=== PATIENT | female | born 1985 | race Native Hawaiian/Other Pacific Islander ===

== ENCOUNTER → 2016-06-12 | Outpatient (CLI) | payer OTHER ==
[~2016-06-12] MED LIST: DOXY10TA PO; IBUP-232 PO; MACR100C PO; PRENCAP6 PO
== END ==
LOC: HPND 10:33
PROVIDERS: ATTEND Obstetrics & Gynecology
DX: O36.5930 Maternal care for other known or suspected poor fetal growth, third trimester, not applicable or unspecified (principal); Z3A.35 35 weeks gestation of pregnancy
CPT/HCPCS: 76816

== ENCOUNTER → 2016-07-15 | Outpatient (CLI) | payer OTHER | LOC: HPND 10:41 | PROVIDERS: ATTEND Obstetrics & Gynecology | DX: O36.5930 Maternal care for other known or suspected poor fetal growth, third trimester, not applicable or unspecified (principal) | CPT/HCPCS: 76816 ==

== ENCOUNTER 2016-07-20 18:33 | Emergency (ER) | payer OTHER ==
[~2016-07-20 18:33] MED LIST changes: -IBUP-232 PO
--- NOTE | 2016-07-20 19:27 | PD ---
HPI Chief Complaint Vaginal spotting Date Seen: Jul 20, 2016 Time Seen: 19:23 Travel History International Travel<30 Days: No Contact w/Intl Traveler<30Days: No Known Affected Area: No History of Present Illness HPI 30-year-old female at 40 weeks and 1 day absent today with vaginal spotting earlier this evening. Patient was checked in the office today around 11 AM and she was 1 cm. She had a small amount of spotting about 5 PM or so. Denies abdominal pain, denies rupture membranes, she is having normal movement. She has another appointment in the office tomorrow to set up an induction for later this week Para: 0 : 1 History Past Medical History Medical History: Denies Significant Hx Past Surgical History Surgical History: No Previous Surgery Family History Family History: Negative Social History Alcohol Use: No Tobacco Use: No Substance Abuse: No Allergies-Medications (Allergen,Severity, Reaction): Coded Allergies: No Known Allergies (Unverified , 11/27/15) Home Meds Active Scripts Doxylamine-Pyridoxine (Diclegis)1 Tab Tab2 Tab PO HS #20 Prov:Carmela Buitrago MD 11/27/15 Nitrofurantoin Monohyd Macro (Macrobid)100 Mg [id number] Mg PO BID 7 Days Prov:Carmela Buitrago MD 11/27/15 Reported Medications Mv & Min W/Fe Fumarat ( 1) Cap1 Cap PO DAILY 11/27/15 Review of Systems Except as stated in HPI: all other systems reviewed are Neg Physical Exam Narrative GENERAL: Well-nourished, well-developed patient. SKIN: Warm and dry. HEAD: Normocephalic and atraumatic. EYES: No scleral icterus. No injection or drainage. ENT: No nasal drainage noted. Mucous membranes pink. Airway patent. NECK: Supple, trachea midline. No JVD. CARDIOVASCULAR: Regular rate and rhythm without murmurs, gallops, or rubs. RESPIRATORY: Breath sounds equal bilaterally. No accessory muscle use. BREASTS: Bilateral exam showed no masses , no retractions, no nipple discharge. ABDOMEN/GI: Abdomen soft, non-tender, bowel sounds present, no rebound, no guarding Gravid to [-] weeks size Fundal Height: [-37] GENITOURINARY: External Genitalia: intact and normal in appearance BUS glands: [-Normal] Cervix: [-Posterior] Dilatation: [-1] Effacement: [50-] Station: [--2] Presentation: [-Vertex] Membranes: Intact Uterine Contractions: Irritability FHT's: Category: [1-] Baseline: 140 Reactive: Moderate Variability: Moderate Decels: Absent EXTREMITIES: No cyanosis or edema. BACK: Nontender without obvious deformity. No CVA tenderness. NEUROLOGICAL: Awake and alert. Motor and sensory grossly within normal limits. Five out of 5 muscle strength in all muscle groups. Normal speech. Data Data Vital Signs Reviewed: Yes MDM Plan 30-year-old female who is at 40 weeks gestation with a small amount of vaginal spotting most likely due to cervical exam in the office today Category 1 heart rate tracing no cervical change since examination earlier today Follow-up as scheduled tomorrow in the office Diagnosis Diagnosis: Primary Impression: 40 weeks gestation of Additional Impression: Vaginal bleeding during , antepartum Disposition: 01 DISCHARGE HOME Ni Pemberton MD Jul 20, 2016 19:27
== END 2016-07-20 19:40 | disposition home or self-care (01) ==
LOC: HOBED 18:33
DX: O26.853 Spotting complicating pregnancy, third trimester (principal); Z3A.40 40 weeks gestation of pregnancy
CPT/HCPCS: 59025

== ENCOUNTER 2016-07-21 18:23 | Inpatient (IN) | payer OTHER ==
[2016-07-21] VITALS (48 sets, daily range): BP systolic 96–144; BP diastolic 45–95; PULSE 76–117; RESP 18–20; TEMP 97.5–98.4
--- NOTE | 2016-07-21 18:36 | PD ---
HPI Chief Complaint Contractions Date Seen: Jul 21, 2016 Travel History International Travel<30 Days: No Contact w/Intl Traveler<30Days: No History of Present Illness HPI Patient is a 30 year old at 40-5/7 weeks gestation with RANDY 07/16/16 who presents today for contractions. She has been having intermittent contractions for the past day, however today around 2 PM her contractions became more regular , occurring every 5 minutes. Since then, they have been becoming more painful and increasing in frequency. She is having some vaginal bleeding but denies any vaginal discharge or gush or leaking of fluid. Positive movement. care with Dr. Ho. History Past Medical History Medical History: Denies Significant Hx Obstetric History Obstetric History Past Surgical History Surgical History: No Previous Surgery Family History Family History: Negative Social History Alcohol Use: No Tobacco Use: No Substance Abuse: No Allergies-Medications (Allergen,Severity, Reaction): Coded Allergies: No Known Allergies (Unverified , 11/27/15) Home Meds Active Scripts Doxylamine-Pyridoxine (Diclegis)1 Tab Tab2 Tab PO HS #20 Prov:Carmela Buitrago MD 11/27/15 Nitrofurantoin Monohyd Macro (Macrobid)100 Mg [id number] Mg PO BID 7 Days Prov:Carmela Buitrago MD 11/27/15 Reported Medications Mv & Min W/Fe Fumarat ( 1) Cap1 Cap PO DAILY 11/27/15 Review of Systems Except as stated in HPI: all other systems reviewed are Neg General / Constitutional: No: Fever, Chills Eyes: No: Visual changes HENT: No: Headaches Respiratory: No: Cough, Short of Breath Genitourinary: Pelvic Pain, Vaginal Bleeding, No: Dysuria, Discharge Psychiatric: No: Substance Abuse Physical Exam Narrative GENERAL: Well-nourished, well-developed patient. SKIN: Warm and dry. HEAD: Normocephalic and atraumatic. EYES: No scleral icterus. No injection or drainage. ENT: No nasal drainage noted. Mucous membranes pink. Airway patent. NECK: Supple, trachea midline. No JVD. CARDIOVASCULAR: Regular rate and rhythm without murmurs, gallops, or rubs. RESPIRATORY: Breath sounds equal bilaterally. No accessory muscle use. ABDOMEN/GI: Abdomen soft, non-tender, bowel sounds present, no rebound, no guarding Gravid to 40 weeks size GENITOURINARY: External Genitalia: intact and normal in appearance BUS glands: normal Cervix: posterior Dilatation: 3 Effacement: 100 Station: 1 Presentation: vertex Membranes: intact Uterine Contractions: q3-4min FHT's: Category: I Baseline: 140 Reactive: + Variability: moderate Decels: none EXTREMITIES: No cyanosis or edema. BACK: Nontender without obvious deformity. No CVA tenderness. NEUROLOGICAL: Awake and alert. Motor and sensory grossly within normal limits. Normal speech. Data Data Vital Signs Reviewed: Yes MDM Medical Record Reviewed: Yes Narrative Course / MDM 30 year old at 40-5/7 weeks gestation 1. IUP- Category I tracing, continue routine obstetric care. 2. Admit for labor 3. GBS unknown at this time, will obtain records. 4. Anticipate vaginal delivery dw Mallory Feldman MD R2 Jul 21, 2016 18:36
[2016-07-21] MEDS ORDERED: LACTATED RINGER'S 1000 ML INJ 1,000 ML IV PRN (19:05)
[2016-07-21] MEDS: LACTATED RINGER'S 1000 ML INJ 1,000 ML IV SCH (19:05)
--- NOTE | 2016-07-21 19:07 | HHI.HP ---
HPI Chief Complaint Contraction pain Date Seen: Jul 21, 2016 Travel History International Travel<30 Days: No Contact w/Intl Traveler<30Days: No History of Present Illness HPI The patient a 30-year-old white female at 40-41 weeks presents complaining of contractions that are painful and regular no bleeding or rupture the membranes, heart rate tracing is reactive contractions are noted to be every 2-[address] Ho for care Para: 0 : 1 History Social History Alcohol Use: No Tobacco Use: No Substance Abuse: No Allergies-Medications (Allergen,Severity, Reaction): Coded Allergies: No Known Allergies (Unverified , 11/27/15) Home Meds Active Scripts Doxylamine-Pyridoxine (Diclegis)1 Tab Tab2 Tab PO HS #20 Prov:Carmela Buitrago MD 11/27/15 Nitrofurantoin Monohyd Macro (Macrobid)100 Mg [id number] Mg PO BID 7 Days Prov:Carmela Buitrago MD 11/27/15 Reported Medications Mv & Min W/Fe Fumarat ( 1) Cap1 Cap PO DAILY 11/27/15 Review of Systems General / Constitutional: No: Fever, Weight Gain, Chills, Other Eyes: No: Diploplia, Blurred Vision, Visual changes, Pain, Photophobia HENT: No: Headaches, Vertigo, Lightheadedness Cardiovascular: No: Irregular Rhythm, Chest Pain or Discomfort, Palpitations, Tachycardia, Syncope, Varicosities, Edema, Cyanosis Respiratory: No: Cough, Short of Breath, Other Gastrointestinal: No: Nausea, Vomiting, Diarrhea Genitourinary: No: Decreased Urinary Output, Oliguria Musculoskeletal: No: Limited ROM, Weakness, Cramping, Edema, Pain Skin: No Rash, No Itching, No Dryness, No Lumps, No Change in Pigmentation, No Change in Nails, No Alopecia, No Lesions Neurologic: No: Weakness, Dizziness, Syncope, Focal Abnormalities, Coordination Problem, Headache, Slurred Speech, Seizures Psychiatric: No: Depression, Suicidal Ideations, Homicidal Ideation Endocrine: No: Heat Intolerance, Cold Intolerance, Polydipsia, Polyuria, Other Physical Exam Vital Signs Date Time Temp Pulse Resp B/P Pulse Ox O2 Delivery O2 Flow Rate FiO2 07/21/16 19:00 98.3 07/21/16 18:59 85 118/78 07/21/16 18:57 20 Narrative GENERAL: Well-nourished, well-developed patient. SKIN: Warm and dry. HEAD: Normocephalic and atraumatic. EYES: No scleral icterus. No injection or drainage. ENT: No nasal drainage noted. Mucous membranes pink. Airway patent. NECK: Supple, trachea midline. No JVD. CARDIOVASCULAR: Regular rate and rhythm without murmurs, gallops, or rubs. RESPIRATORY: Breath sounds equal bilaterally. No accessory muscle use. BREASTS: Bilateral exam showed no masses , no retractions, no nipple discharge. ABDOMEN/GI: Abdomen soft, non-tender, bowel sounds present, no rebound, no guarding Gravid to [-40] weeks size Fundal Height: [40-] GENITOURINARY: External Genitalia: intact and normal in appearance BUS glands: [-] Cervix: [3-] Dilatation: [3-] Effacement: [-100] Station: +1 Presentation: [vtx-] Membranes: [intact ] Uterine Contractions: [q 2-3 min-] FHT's: Category: [1-] Baseline: [144-] Reactive: [yes-] Variability: [mod-] Decels: [none-] EXTREMITIES: No cyanosis or edema. BACK: Nontender without obvious deformity. No CVA tenderness. NEUROLOGICAL: Awake and alert. Motor and sensory grossly within normal limits. Five out of 5 muscle strength in all muscle groups. Normal speech. Data Data Orders Vital Signs (Adult) .ON ADMISSION (07/21/16 18:32) ^ Labor Status (07/21/16 18:32) ^ Non Stress Test (07/21/16 18:32) ^ Hydration (07/21/16 18:32) Assessment/Plan Assessment and Plan This patient is 30-year-old female at 40-41 weeks presents in active labor , membranes intact cervix is 3/100% and +1 station vertex, will call her OB provider Dr. Ho for orders and admission for early labor Osvaldo Landin II, MD Jul 21, 2016 19:07
[2016-07-21] MEDS ORDERED: LIDOCAINE HCL 1% 50 ML VIAL I-DERMAL PRN (19:15)
[2016-07-21] MEDS ORDERED: ONDANSETRON HCL 4 MG/2 ML VIAL IV PRN (19:15)
[2016-07-21] MEDS ORDERED: OXYTOCIN 30 UNITS-500ML PREMIX 500 ML IV ONE (19:15)
[2016-07-21] MEDS ORDERED: SODIUM CHLORID 0.9% 500 ML INJ 500 ML IV PRN (19:15)
[2016-07-21] MEDS ORDERED: MINERAL OIL 10 ML VIAL TOPICAL PRN (19:15)
[2016-07-21] MEDS ORDERED: LIDOCAINE HCL 1% 50 ML VIAL INFIL PRN (19:15)
[2016-07-21] MEDS ORDERED: CITRIC ACID-SODIUM CITRATE LIQ 30 ML UDC PO SCH (19:15)
[2016-07-21] MEDS ORDERED: SODIUM CHLOR 0.9% 1000 ML INJ 1,000 ML IV PRN (19:25)
[2016-07-21 19:41] LABS: BASOPHIL % 0.4 % (0.0-2.0); HEMO FLAGS DIFF FINAL; LYMPH % 11.6 % (9.0-44.0); LYMPHOCYTE # 1.2 TH/MM3 (1.0-4.8); MEAN CELL VOLUME 86.3 FL (80.0-100.0); MEAN CORPUSCULAR HEMOGLOBIN 29.1 PG (27.0-34.0); MEAN CORPUSCULAR HGB CONC 33.8 % (32.0-36.0); MONO % 3.2 % (0.0-8.0); NEUT % 84.8 % (16.0-70.0); PLATELET COUNT 232 TH/MM3 (150-450); RED BLOOD COUNT 4.87 MIL/MM3 (4.00-5.30); RED CELL DISTRIBUTION WIDTH 15.3 % (11.6-17.2); WHITE BLOOD COUNT 10.6 TH/MM3 (4.0-11.0)
[2016-07-21 19:44] LABS: BACTERIA, URINE RARE /hpf; BLOOD, URINE TRACE (NEG); COMMENT (UR) CULT NOT INDICATED; CULTURE IF INDICATED CULT NOT INDICATED; GLUCOSE,URINE NEG (NEG); KETONE, URINE 150 mg/dL (NEG); MUCUS URINE FEW /lpf (OCC); NITRITE,URINE NEG (NEG); PH, URINE 6.5 (5.0-8.5); SQUAMOUS EPITHELIAL CELL URINE 7 /hpf (0-5); TRANSITIONAL EPI CELLS, URINE <1 /hpf; URINE COLOR YELLOW (YELLW/STRAW)
[2016-07-21] MEDS ORDERED: fentaNYL 2MCG-BUPIV 0.125% INJ 100 ML ONE (19:48)
[2016-07-21] MEDS ORDERED: DO NOT ADMINISTER ANTICOAGULANTS PRN (21:45)
[2016-07-21] MEDS ORDERED: fentaNYL 2MCG-BUPIV 0.125% 100 ML EPIDURAL SCH (21:45)
[2016-07-21] MEDS ORDERED: ePHEDrine/NS 25 MG/5 ML SYR IV PRN (21:45)
[2016-07-21] MEDS ORDERED: NO SYSTEM NARCOTICS PRN (21:45)
[2016-07-22] VITALS (101 sets, daily range): BP systolic 96–154; BP diastolic 48–91; PULSE 66–122; RESP 16–20; TEMP 98–98.6
[2016-07-22] MEDS: LACTATED RINGER'S 1000 ML INJ 1,000 ML IV SCH (01:40)
[2016-07-22] MEDS ORDERED: BUPIVACAINE HCL PF 0.25% 10 ML VIAL ONE (04:02)
[2016-07-22] MEDS ORDERED: LIDOCAINE HCL 1.5% PF SOLN 20 ML AMP ONE (07:39)
[2016-07-22] MEDS ORDERED: OXYTOCIN 30 UNITS-500ML PREMIX 500 ML ONE ×2 (07:55→12:45)
[2016-07-22] MEDS ORDERED: MEPERIDINE HCL 50 MG/ML VIAL ONE (12:13)
--- NOTE | 2016-07-22 12:57 | PD.OB.DELI ---
Delivery Date: Jul 22, 2016 Anesthesia: Epidural Episiotomy: None, Midline Vaginal Delivery: Vacuum Presentation: Occiput anterior Nuchal Cord: None Delayed cord clamping (45 sec): No Infant: Female One Minute : 8 Five Minute : 9 Weight: 6/ Placenta: Spontaneous delivery, Intact, 3 vessel cord Laceration: Perineal laceration, 3 deg Repair: Vicryl running Additional Information Vaccuum extraction of Luiza, Terminal thick meconium handed to team CHUNG Maternal exhaustion. Partial third degree tear repaired with 3-0 vicryl Uterus explored EBL is 300cc Wilder Ho MD Jul 22, 2016 12:57
[2016-07-22] MEDS ORDERED: BENZOCAINE 20% TOPICAL SPRAY 60 ML CAN TOPICAL PRN (13:00)
[2016-07-22] MEDS ORDERED: DOCUSATE SODIUM 50 MG/SENNA 8.6 MG TAB PO PRN (13:00)
[2016-07-22] MEDS ORDERED: OXYTOCIN 30 UNITS-500ML PREMIX 500 ML IV ONE (13:00)
[2016-07-22] MEDS ORDERED: ALUMINUM/MAGNESIUM/SIMETH 30 ML CUP PO PRN (13:00)
[2016-07-22] MEDS ORDERED: WITCH HAZEL 50%/GLYCERIN 12.5% 40 PAD JAR TOPICAL PRN (13:00)
[2016-07-22] MEDS ORDERED: oxyCODONE/ACETAMINOPHEN 5 MG/325 MG TAB PO PRN ×2 (13:00)
[2016-07-22] MEDS ORDERED: ONDANSETRON ODT 4 MG TAB PO PRN (13:00)
[2016-07-22] MEDS ORDERED: MEPERIDINE HCL 50 MG/ML VIAL IV PUSH ONE (13:00)
[2016-07-22] MEDS ORDERED: SODIUM CHLORIDE 0.9% FLUSH 10 ML FLUSH IV FLUSH PRN (13:00)
[2016-07-22] MEDS ORDERED: ZOLPIDEM TARTRATE 5 MG TAB PO PRN (13:00)
[2016-07-22] MEDS ORDERED: DIPHTH/TETANUS/ACEL PERTUSSIS (BOOSTER) 0.5 ML VIAL/PFS IM ONE (16:00)
[2016-07-22] MEDS ORDERED: MEASLES, MUMPS, RUBELLA VACCINE 0.5 ML VIAL SQ ONE (16:00)
[2016-07-22] MEDS: ACETAMINOPHEN 325 MG TAB PO PRN (17:07)
[2016-07-22] MEDS: IBUPROFEN 600 MG TAB PO PRN (17:08)
[2016-07-22] MEDS ORDERED: SODIUM CHLORIDE 0.9% FLUSH 10 ML FLUSH IV FLUSH SCH (21:00)
[2016-07-23] MEDS: IBUPROFEN 600 MG TAB PO PRN ×3 (00:12→15:36)
[2016-07-23] MEDS: ACETAMINOPHEN 325 MG TAB PO PRN ×2 (00:12→15:36)
[2016-07-23 09:19] VITALS: BP 115/79; PULSE 97; RESP 16; TEMP 98.4
[2016-07-23 19:00] VITALS: BP 116/78; PULSE 111; RESP 18; TEMP 98.1
[2016-07-24 07:35] VITALS: BP 114/73; PULSE 77; RESP 20; TEMP 97.1
[2016-07-24] MEDS ORDERED: IBUP-232 PO (08:13)
--- NOTE | 2016-07-24 08:14 | HHI.DCPOC ---
Discharge Care Plan Diagnosis: (1) Normal vaginal delivery Report Symptoms to Your Doctor -Temperate above 100.5 degrees -Redness, of incision or excessive or foul smelling drainage -Unusual pain or calf pain -Increased vaginal bleeding -Painful or difficulty urinating -Feelings of extreme sadness or anxiety after 2 weeks Goals to Promote Your Health * To prevent worsening of your condition and complications * To maintain your health at the optimal level Directions to Meet Your Goals Take your medications as prescribed Follow your dietary instruction Follow activity as directed Ensure plenty of rest for recovery Drink fluids for hydration Keep your appointments as scheduled Take your immunizations and boosters as scheduled If your symptoms worsen call your PCP, if no PCP go to Urgent Care Center or Emergency Room Smoking is Dangerous to Your Health. Avoid second hand smoke Call the 24-hour crisis hotline for domestic abuse at Palm[facility] Brizuela Jul 24, 2016 08:14
--- NOTE | 2016-07-24 08:16 | HHI.OB ---
Subjective Post Day: 2 Objective Vitals/I&O Vital Signs Date Time Temp Pulse Resp B/P Pulse Ox O2 Delivery O2 Flow Rate FiO2 07/23/16 19:00 98.1 111 18 116/78 07/23/16 16:40 18 07/23/16 16:40 18 07/23/16 09:19 98.4 97 16 115/79 Objective Remarks GENERAL: Well-nourished, well-developed patient. CARDIOVASCULAR: Regular rate and rhythm without murmurs, gallops, or rubs. RESPIRATORY: Breath sounds equal bilaterally. No accessory muscle use. ABDOMEN/GI: Abdomen soft, non-tender. Fundus: Firm, non-tender at umbilicus. GENITOURINARY: Light to moderate bleeding. EXTREMITIES: No cyanosis or edema, non-tender, without signs of DVT. Medications and IVs Current Medications Medications (Trade) Dose Ordered Sig/Ford Route Start Time Stop Time Status Last Admin (NS Flush) 2 ml BID IV FLUSH 07/22/16 21:00 (NS Flush) 2 ml UNSCH PRN IV FLUSH 07/22/16 13:00 (Tylenol) 650 mg Q4H PRN PO 07/22/16 13:00 07/23/16 15:36 (Motrin) 600 mg Q6H PRN PO 07/22/16 13:00 07/23/16 15:36 (Percocet 5-325 Mg) 1 tab Q4H PRN PO 07/22/16 13:00 (Percocet 5-325 Mg) 2 tab Q4H PRN PO 07/22/16 13:00 (Americaine 20% Top Spr) 1 spray Q4H PRN TOPICAL 07/22/16 13:00 07/22/16 17:06 (Tucks Pads) 1 applic QID PRN TOPICAL 07/22/16 13:00 07/22/16 17:06 (Ashley-Colace) 2 tab Q12H PRN PO 07/22/16 13:00 07/22/16 17:07 (Ambien) 5 mg HS PRN PO 07/22/16 13:00 (Mag-Al Plus Susp Liq) 15 ml Q8H PRN PO 07/22/16 13:00 (Zofran Odt) 4 mg Q6H PRN PO 07/22/16 13:00 Assessment/Plan Problem List: (1) Normal vaginal delivery Assessment and Plan pt doing well bonding with infant father encouraged to assist with infant care routine Discharge Planning dc home today Palmira Brizuela Jul 24, 2016 08:16
--- NOTE | 2016-07-24 08:58 | HHI.DS ---
Admission Date Jul 21, 2016 at 19:27 Discharge Date: Jul 24, 2016 Admitting Diagnosis 40 week labor Diagnosis: (1) Normal vaginal delivery Diagnosis: Principal Delivery Date: Jul 22, 2016 Vaginal Delivery: Normal : Female Brief History 40+ weeks labor Hospital Course routine Pt Condition on Discharge: Good Discharge Disposition: Discharge Home Discharge Instructions Diet Instructions: As Tolerated, No Restrictions Additional Diet Instructions: Drink at least 8 - 16 oz bottles of water a day Activities You Can Perform: Shower Only-No Bath, Sitz Bath Activities to Avoid: Lifting/Bending, Sexual Activity Additional Activity Instruc.: No driving until off pain medications Do not lift anything heavier than your baby in an carrier Follow up Referrals: PROJECT MANAGEMENT CONSULTANT - 2 Weeks @ [facility] [place] New Medications: Ibuprofen (Ibuprofen) 600 Mg Tab 600 MG PO Q6H PRN moderate pain #30 Ref 1 TAB Continued Medications: Mv & Min W/Fe Fumarat ( 1) Cap 1 CAP PO DAILY CAP Discontinued Medications: Doxylamine-Pyridoxine (Diclegis) 1 Tab Tab 2 TAB PO HS #20 Nitrofurantoin Monohyd Macro (Macrobid) 100 Mg Cap 100 MG PO BID Days 7 CAP Palmira Brizuela Jul 24, 2016 08:58 Palmira Brizuela Jul 24, 2016 08:58
== END 2016-07-24 16:30 | disposition home or self-care (01) | DRG 775 ==
LOC: HOBED 18:23 → H2EB 19:27 → H1EA 07-22 15:20
PROVIDERS: ADMIT Obstetrics & Gynecology; ATTEND Obstetrics & Gynecology
PROC: 3E0S3CZ (ICD-10-PCS; 2016-07-21)
PROC: 00HU33Z Insertion of Infusion Device into Spinal Canal, Percutaneous Approach (ICD-10-PCS; 2016-07-21)
PROC: 10D07Z6 Extraction of Products of Conception, Vacuum, Via Natural or Artificial Opening (ICD-10-PCS; principal; 2016-07-22)
PROC: 0DQR0ZZ Repair Anal Sphincter, Open Approach (ICD-10-PCS; 2016-07-22)
DX: O70.20 Third degree perineal laceration during delivery, unspecified (principal); O26.853 Spotting complicating pregnancy, third trimester; O77.0 Labor and delivery complicated by meconium in amniotic fluid; O75.81 Maternal exhaustion complicating labor and delivery; Z37.0 Single live birth; Z3A.40 40 weeks gestation of pregnancy
CPT/HCPCS: 59025; 81001; 85025; 86900; 86901; 88307; 90715; J2175; J2590; J7120